=== PATIENT | male | born 1950 | race Caucasian/White ===

== ENCOUNTER 2018-02-07 19:16 | Emergency (ER) | payer MEDICARE ==
[~2018-02-07] VITALS: Ht 172.7 cm; Wt 67.0 kg
[2018-02-07 20:41] LABS: BASOPHILS # (AUTO) 0.06 x10^3/uL (0-0.1); BASOPHILS % (AUTO) 1 % (0-1); EOSINOPHILS # (AUTO) 0.32 x10^3/uL (0-0.4); EOSINOPHILS % (AUTO) 3 % (1-7); LYMPHOCYTES # (AUTO) 2.59 x10^3/uL (1-3.4); LYMPHOCYTES % (AUTO) 21 % (22-44); MD NO; MEAN CORPUSCULAR HEMOGLOBIN 25.5 pg (27.5-34.5); MEAN CORPUSCULAR HGB CONC 32.7 g/dL (33.2-36.2); MEAN CORPUSCULAR VOLUME 77.9 fL (81-97); MONOCYTES # (AUTO) 1.29 x10^3/uL (0.2-0.8); MONOCYTES % (AUTO) 11 % (2-9); NEUTROPHILS # (AUTO) 7.97 x10^3/uL (1.8-6.8); NEUTROPHILS % (AUTO) 65 % (42-75); PLATELET COUNT 386 x10^3/uL (130-400); RED BLOOD COUNT 4.34 x10^6/uL (4.38-5.82); RED CELL DISTRIBUTION WIDTH 17.6 % (9.4-14.8)
[2018-02-07 20:52] LABS: ALBUMIN 2.6 g/dL (3.4-5.0); ANION GAP 7 mmol/L (5-15); CALCIUM 8.6 mg/dL (8.5-10.1); CHLORIDE 100 mmol/L (98-107); CREATININE 0.76 mg/dL (0.7-1.3)
[2018-02-07 20:56] LABS: TROPONIN I < 0.015 ng/mL (0.000-0.045)
[2018-02-07 21:49] VITALS: BP 96/67
== END 2018-02-07 22:21 | disposition home or self-care (01) ==
LOC: ED 21:45
DX: J44.1 Chronic obstructive pulmonary disease with (acute) exacerbation (principal); Z72.89 Other problems related to lifestyle; F17.210 Nicotine dependence, cigarettes, uncomplicated
CPT/HCPCS: 36415; 71046; 80048; 82040; 83880; 84484; 85025; 93005; 99285

== ENCOUNTER 2019-03-08 20:33 | Emergency (ER) | payer BC, MEDICARE ==
[~2019-03-08] VITALS: Ht 170.2 cm; Wt 75.8 kg
--- NOTE | 2019-03-08 20:42 | NUR ---
ON OXYGEN VIA NC AND PLACED LOBBY
[2019-03-08 21:14] LABS: BASOPHILS # (AUTO) 0.06 x10^3/uL (0-0.1); BASOPHILS % (AUTO) 0 % (0-1); EOSINOPHILS # (AUTO) 0.14 x10^3/uL (0-0.4); EOSINOPHILS % (AUTO) 1 % (1-7); LYMPHOCYTES % (AUTO) 19 % (22-44); MD NO; MEAN CORPUSCULAR HEMOGLOBIN 28.6 pg (27.5-34.5); MEAN CORPUSCULAR HGB CONC 33.2 g/dL (33.2-36.2); MEAN CORPUSCULAR VOLUME 86.2 fL (81-97); MEAN PLATELET VOLUME 7.3 fL (7.4-10.4); MONOCYTES % (AUTO) 10 % (2-9); NEUTROPHILS # (AUTO) 9.98 x10^3/uL (1.8-6.8); NEUTROPHILS % (AUTO) 70 % (42-75); PLATELET COUNT 344 x10^3/uL (130-400); RED BLOOD COUNT 4.21 x10^6/uL (4.38-5.82); RED CELL DISTRIBUTION WIDTH 14.8 % (9.4-14.8)
[2019-03-08 21:20] LABS: ALANINE AMINOTRANSFERASE 31 U/L (12-78); ALBUMIN 3.8 g/dL (3.4-5.0); ANION GAP 8 mmol/L (5-15); CALCIUM 8.8 mg/dL (8.5-10.1); CHLORIDE 108 mmol/L (98-107); CREATININE 1.16 mg/dL (0.7-1.3)
[2019-03-08 21:24] LABS: ALKALINE PHOSPHATASE 91 U/L (45-117); BILIRUBIN,TOTAL 0.6 mg/dL (0.2-1.0); TOTAL PROTEIN 8.4 g/dL (6.4-8.2); TROPONIN I < 0.015 ng/mL (0.000-0.045)
--- NOTE | 2019-03-08 21:49 | NUR ---
FIRST CONTACT WITH PT. PT C/O DIFFICULTY WALKING LOWER BACK PAIN WITH NOSE DISCHARGE YELLOW PER PT'S REPORT " I MIGHT HAVE PNEUMONIA ". PT'S AOX4. RESPS EVEN AND UNLABORED. PT C/O SOB WELL. CALL LIGHT WITHIN REACH. EDMD AT BEDSIDE NOW.
[2019-03-08] MEDS ORDERED: ACETAMINOPHEN 500 MG TABLET ONE (21:53)
[2019-03-08] MEDS ORDERED: ACETAMINOPHEN 500 MG TABLET PO ONE (22:00)
--- NOTE | 2019-03-08 22:02 | NUR ---
pt medicated per emar. pt tolerated well. pt talking by himself. pt trying to get out of bed. pt reeducated to stay in bed.
[2019-03-08] MEDS ORDERED: OMNIPAQUE 350 MG/ML, 100ML BOTTLE ONE (23:00)
--- NOTE | 2019-03-08 23:09 | NUR ---
PT IN CT
--- NOTE | 2019-03-08 23:15 | NUR ---
BACK TO ROOM FROM CT NOW.
[2019-03-09 00:09] VITALS: BP 130/70
--- NOTE | 2019-03-09 00:09 | NUR ---
EDMD AT BEDSIDE TO EXPLAIN ALL RESULTS AT THIS TIME. AWAITING DISPO.
--- NOTE | 2019-03-09 00:41 | NUR ---
PT GIVEN DC INSTRUCTIONS. PT'S AOX4. RESPS EVEN AND UNLABORED. PT AMB TO DC WITH STEADY GAIT. NO ACUTE DISTRESS AT DC.
--- NOTE | 2019-03-09 00:46 | NUR ---
PT PROVIDED TAXI VOUCHER AT DE. [place] GUAJARDO WALKED TO DE WITH PT.
== END 2019-03-09 00:42 | disposition home or self-care (01) ==
LOC: ED 21:26
DX: G89.29 Other chronic pain (principal); M54.6 Pain in thoracic spine; M54.2 Cervicalgia; R06.00 Dyspnea, unspecified; M54.5 Low back pain; J44.9 Chronic obstructive pulmonary disease, unspecified; Z72.9 Problem related to lifestyle, unspecified; F17.200 Nicotine dependence, unspecified, uncomplicated
CPT/HCPCS: 36415; 71046; 71275; 80053; 84484; 85025; 85379; 93005; 99284; Q9967